=== PATIENT | male | born 1970 | race Caucasian/White ===

== ENCOUNTER → 2022-03-12 13:03 | Outpatient (BNVA) | payer BC, SELFPAY | PROVIDERS: Family Provider Family Medicine; PCP Family Medicine; Visit Provider Registered Nurse Neonatal Intensive Care | DX: R30.0 Dysuria (principal) | CPT/HCPCS: 81000 ==

== ENCOUNTER → 2022-03-22 13:40 | Outpatient (BNVA) | payer BC, SELFPAY | PROVIDERS: Family Provider Family Medicine; PCP Family Medicine; Visit Provider Registered Nurse Neonatal Intensive Care | DX: R30.0 Dysuria (principal) | CPT/HCPCS: 87086 ==

== ENCOUNTER → 2022-04-04 11:16 | Outpatient (BNVA) | payer BC, SELFPAY | PROVIDERS: Family Provider Family Medicine; PCP Family Medicine; Visit Provider Family Medicine | DX: R30.0 Dysuria (principal) | CPT/HCPCS: 81000; 87491; 87591 ==

== ENCOUNTER → 2023-04-03 11:13 | Outpatient (BNVA) | payer BC, SELFPAY | PROVIDERS: Family Provider Family Medicine; PCP Family Medicine; Visit Provider Family Medicine | DX: F32.A Depression, unspecified (principal); I49.3 Ventricular premature depolarization; M79.10 Myalgia, unspecified site; R53.1 Weakness; R30.0 Dysuria | CPT/HCPCS: 80053; 80061; 82306; 82550; 82607; 83735; 83880; 84443; 85025; 86140 ==

== ENCOUNTER 2024-02-16 12:52 | Outpatient (CLI) | payer BC, MEDICAID, SELFPAY ==
--- NOTE | 2024-02-16 | ECG_ITS ---
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 Interpretive Statements Lung unchanged pre/post procedure; Intraprocedure shortess of breath; Symptoms resoled by discharge PROCEDURE: At the baseline, the patient's blood pressure was 101/84 with a heart rate of 109. The baseline electrocardiogram showed normal sinus rhythm with normal ST-Ts. Poor R wave progression. The patient exercised for 3 minutes and 2 seconds on a standard George protocol. Patient attained a maximum heart rate of 145 beats per minute(86% of the maximum predicted heart rate) with a blood pressure at the peak exercise of 167/81 mm Hg. The EKG at the peak exercise revealed no significant changes. Patient did not have any chest pain or any significant cardiac arrhythmias with the exercise During the recovery phase, there were no new changes. Blood pressure at the end of the recovery phase was 152/91 mm Hg with a heart rate of 111 per minute. CONCLUSION: 1. Normal EKG response to treadmill exercise 2. No exercise-induced chest pain or cardiac arrhythmia 3. Impaired exercise tolerance, attained a maximum of 4.6 METs Electronically Signed On 02-20-2024 14:34:48 COMMERCIAL INSURANCE UNDERWRITER by Glo Kurtz M.D. [id number]
[2024-02-16 13:02] VITALS: BMI 50.1
[2024-02-16 13:53] VITALS: BP 146/72; PULSE 111
== END 2024-02-16 12:53 | disposition home or self-care (01) ==
PROVIDERS: PCP Electrodiagnostic Medicine; Visit Provider Electrodiagnostic Medicine
DX: R07.9 Chest pain, unspecified (principal); R06.02 Shortness of breath
CPT/HCPCS: 93017

== ENCOUNTER 2024-03-13 23:09 | Emergency (ER) | payer BC, MEDICAID, SELFPAY ==
[2024-03-13 23:16] VITALS: BP 136/84; PULSE 86; RESP 18; TEMP 36.6; O2SAT 94; BMI 48.4
[2024-03-13 23:36] VITALS: BP 131/74; O2SAT 91
[2024-03-13 23:45] VITALS: BP 129/84; PULSE 91; RESP 19; O2SAT 93
[2024-03-14] VITALS (12 sets, daily range): BP systolic 110–170; BP diastolic 81–99; PULSE 85–99; RESP 16–23; O2SAT 90–95
--- NOTE | 2024-03-14 00:09 | W.ED.OVERDOS ---
HPI - Overdose General: Chief Complaint: Overdose Stated Complaint: dry mouth, numbness in hand and feet, od Time Seen by Provider: 03/13/24 23:14 History of Present Illness: 53 old male patient with a history of depression. He has been out of his venlafaxine for a day. He was feeling depressed, and wanted to try one of his 's marijuana Gummies. He took a whole square he says. After doing this, he began to have paresthesias to the bilateral upper extremities, dry mouth, some carpopedal spasm, with mild lethargy. He is quite nauseated as well. He has not thrown up. Related Data Previous Rx's Medication Instructions Recorded cholecalciferol (vitamin D3) 125 125 mcg PO DAILY #30 caps 04/16/23 mcg (5,000 unit) capsule mecobalamin (vitamin B12) 1,000 1,000 mcg PO DAILY #30 tabs 04/16/23 mcg chewable tablet diltiazem HCl 360 mg 360 mg PO DAILY #30 caps 05/21/23 capsule,extended release 24 hr risperidone 0.5 mg tablet 0.5 mg PO .QHS #30 tabs 06/26/23 (Risperdal) meloxicam 7.5 mg tablet 7.5 mg PO DAILY #30 tabs 08/24/23 venlafaxine 150 mg See Rx Instructions .Route 03/14/24 capsule,extended release 24 hr .COMPLEX #30 caps Allergies Allergy/AdvReac Type Severity Reaction Status Date / Time acetaminophen AdvReac Intermediate Unknown Verified 02/16/24 13:02 [From Darvocet-N] propoxyphene AdvReac Intermediate Unknown Verified 02/16/24 13:02 [From Darvocet-N] Sulfa (Sulfonamide AdvReac Intermediate rash Verified 02/16/24 13:02 Antibiotics) aripiprazole [From Abilify] AdvReac ADR-Confusi Verified 02/16/24 13:02 on [facility] PFSH: Medical History Hypertension Vitamin D deficiency Symptomatic PVCs Depression Physical Exam Const: COMMON NORMALS: no acute distress GENERAL APPEARANCE: cooperative; not ill appearing and not frail appearing HENMT: COMMON NORMALS: normocephalic, atraumatic and Normal external nose present HEAD & SCALP: normocephalic and atraumatic FACE & SINUS: normal facial exam and face symmetric NOSE: Normal external nose present Eye: COMMON NORMALS: Equal, round and reactive pupils present and EOMs intact bilaterally PUPIL: Yes Equal, round and reactive pupils present Neck/C-Spine: GENERAL: Yes trachea midline Chest: CHEST: Yes Symmetrical chest wall rise Resp: COMMON NORMALS: normal respiratory effort, No retractions, No use of accessory muscles and clear to auscultation bilaterally AUSCULTATION: clear to auscultation bilaterally Cardio: COMMON NORMALS: regular rate and regular rhythm RATE: regular rate RHYTHM: regular rhythm GI: COMMON NORMALS: Normal to inspection, nondistended, normoactive bowel sounds present Extremity: COMMON NORMALS: no pedal edema Neuro: BHAVNA COMA SCALE: document GCS findings [place] coma scale eye opening: Spontaneous [place] coma scale verbal response: Orientated [place] coma scale motor response: Obey commands Bhavna coma scale total score: 15 SENSORY EXAM: Yes extremities (intact) Psych: COMMON NORMALS: speech normal SPEECH: Yes normal speech Skin: COMMON NORMALS: no rashes or lesions noted GENERAL SKIN EXAM: no rashes or lesions noted Course Vital Signs: Vital signs: Vital Signs Temperature 98 F 03/13/24 23:16 Pulse Rate 87 03/14/24 02:44 Respiratory Rate 18 03/14/24 02:44 Blood Pressure 125/84 03/14/24 02:44 Pulse Oximetry 94 03/14/24 02:44 Oxygen Delivery Me thod Room Air 03/14/24 02:30 MDM - Overdose Medical Decision Making The patient's heart rate is 90, saturations are 92 to 95% on room air. White blood cell count is 12. Other laboratory markers are not significantly abnormal. He feels improved after nausea medication here. Ingestion/overdose was accidental likely representing an adverse reaction to marijuana gummy as opposed to a true overdose. He feels improved currently, and is ready to go home. He is not suicidal or homicidal Lab Data 03/14/24 00:32 03/14/24 00:32 Laboratory Results WBC 12.34 10^3/uL (3.29-11.43) H 03/14/24 00:32 RBC 4.98 10^6/uL (3.85-5.65) 03/14/24 00:32 Hgb 14.70 g/dL (11.27-16.99) 03/14/24 00:32 Hct 46.8 % (37-53) 03/14/24 00:32 MCV 94.0 fl (82-101) 03/14/24 00:32 MCH 29.5 pg (27-33) 03/14/24 00:32 MCHC 31.4 g/dL (30-55) 03/14/24 00:32 RDW 13.9 % (12.1-15.1) 03/14/24 00:32 Plt Count 194 10^3/cmm (157-399) 03/14/24 00:32 MPV 12.8 fL (7.4-10.4) H 03/14/24 00:32 Neut % (Auto) 77.7 % 03/14/24 00:32 Lymph % (Auto) 14.1 % 03/14/24 00: [place] % (Auto) 6.4 % 03/14/24 00: Eos % (Auto) 0.8 % 03/14/24 00: Baso % (Auto) 0.5 % 03/14/24 00:32 Neut # (Auto) 9.59 10^3/uL (1.8-7.7) H 03/14/24 00:32 Lymph # (Auto) 1.7 10^3/uL (0.8-4.8) 03/14/24 00:32 [place] # (Auto) 0.8 10^3/uL (0.2-0.9) 03/14/24 00:32 Eos # (Auto) 0.1 10^3/uL (0.0-0.8) 03/14/24 00:32 Baso # (Auto) 0.1 10^3/uL (0.0-0.1) 03/14/24 00:32 Nucleated RBC % (auto) 0 % 03/14/24 00: Nucleated RBCs # 0.0 /100WBC 03/14/24 00:32 Sodium 136 mmol/L (136-145) 03/14/24 00:32 Potassium 3.7 mmol/L (3.5-5.1) 03/14/24 00:32 Chloride 98 mmol/L (98-107) 03/14/24 00:32 Carbon Dioxide 26 mmol/L (22-29) 03/14/24 00:32 Anion Gap 15.7 (5-19) 03/14/24 00:32 BUN 13 mg/dL (6-20) 03/14/24 00:32 Creatinine 1.2 mg/dL (0.7-1.2) 03/14/24 00:32 GFR Calculation 63.3 mL/min (90-130) L 03/14/24 00:32 Glucose 188 mg/dL (65-115) H 03/14/24 00:32 Calculated Osmolality 287 mOsm/kg (285-295) 03/14/24 00:32 Calcium 9.2 mg/dL (8.5-10.5) 03/14/24 00:32 Total Bilirubin 0.2 mg/dL (0.15-1.2) 03/14/24 00:32 AST 20 U/L (0-40) 03/14/24 00:32 ALT 35 U/L (0-41) 03/14/24 00:32 Alkaline Phosphatase 125 U/L (40-130) 03/14/24 00:32 Total Protein 7.7 g/dL (6.6-8.7) 03/14/24 00:32 Albumin 3.9 g/dL (3.5-5.2) 03/14/24 00:32 Globulin 3.8 g/dL (1.3-4.6) 03/14/24 00:32 Salicylates < 0.3 mg/dL (3-10) L 03/14/24 00:32 Acetaminophen < 5.0 ug/mL (10-30) L 03/14/24 00:32 Ethyl Alcohol < 10 mg/dL (0-10) 03/14/24 00:32 No radiology studies performed this visit Discharge Plan Discharge Patient Disposition: Home Clinical Impression: Accidental cannabis overdose Condition: Stable Prescriptions: Continued venlafaxine 150 mg capsule,extended release 24hr See Rx Instructions .ROUTE .COMPLEX Qty: 30 0RF Dose Instruction: Take 1 capsule by mouth once daily Rx Instructions: Take 1 capsule by mouth once daily No Action cholecalciferol (vitamin D3) 125 mcg (5,000 unit) capsule 125 mcg PO DAILY Qty: 30 11RF mecobalamin (vitamin B12) 1,000 mcg tablet,chewable 1,000 mcg PO DAILY Qty: 30 11RF diltiazem HCl 360 mg capsule,extended release 24hr 360 mg PO DAILY Qty: 30 11RF risperidone [Risperdal] 0.5 mg tablet 0.5 mg PO .QHS Qty: 30 11RF meloxicam 7.5 mg tablet 7.5 mg PO DAILY Qty: 30 11RF Discharge Orders: Discharge ED (Routine); Ordered 03/14/24 Ordered By: Robert Newman Referrals: Baldev Palafox DO [Primary Care Provider] - 1-3 days Patient Instructions: Cannabis Use Disorder (ED), Opioid Safety, Pain Management Activity Restrictions/Additional Instructions: Avoid ingestion of cannabis in the future. Stay hydrated for the next 48 hours. Return for any new or worsening symptoms. See your doctor this week. Coding Level of Care Code ED Pump Operator for Summer Suazo
--- NOTE | 2024-03-14 00:14 | ECG_ITS ---
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 Measurements Intervals [place] Rate: 96 P: 64 NE: 169 QRS: 132 QRSD: 96 T: 93 QT: 362 QTc: 458 Interpretive Statements SINUS RHYTHM RIGHT AXIS DEVIATION [QRS AXIS > 100] No previous ECG available for comparison Electronically Signed On 03-16-2024 23:52:16 BANQUET MANAGER by Glo Kurtz M.D. [email or web address]
[2024-03-14 01:06] LABS: Basophils # 0.1 10^3/uL (0.0-0.1); Basophils % 0.5 %; Eosinophils # 0.1 10^3/uL (0.0-0.8); Eosinophils % 0.8 %; Hematocrit 46.8 % (37-53); Lymphocytes # 1.7 10^3/uL (0.8-4.8); Lymphocytes % 14.1 %; Mean Corpuscular HGB Conc 31.4 g/dL (30-55); Mean Corpuscular Hemoglobin 29.5 pg (27-33); Mean Platelet Volume 12.8 fL (7.4-10.4); Monocytes # 0.8 10^3/uL (0.2-0.9); Monocytes % 6.4 %; Neutrophils # 9.59 10^3/uL (1.8-7.7); Neutrophils % 77.7 %; Nucleated Red Blood Cells % 0 %; Platelet Count 194 10^3/cmm (157-399); Red Blood Count 4.98 10^6/uL (3.85-5.65); Red Cell Distribution Width 13.9 % (12.1-15.1); White Blood Count 12.34 10^3/uL (3.29-11.43)
[2024-03-14] MEDS: ondansetron 4 MG Tablet PO (01:12)
[2024-03-14 01:20] LABS: Alanine Aminotransferase 35 U/L (0-41); Albumin Level 3.9 g/dL (3.5-5.2); Alkaline Phosphatase 125 U/L (40-130); Anion Gap 15.7 (5-19); Aspartate Amino Transferase 20 U/L (0-40); Blood Urea Nitrogen 13 mg/dL (6-20); Calcium 9.2 mg/dL (8.5-10.5); Carbon Dioxide 26 mmol/L (22-29); Chloride 98 mmol/L (98-107); Globulin 3.8 g/dL (1.3-4.6); Glomerular Filtration Rate 63.3 mL/min (90-130); Glucose 188 mg/dL (65-115); Osmolality Calculated 287 mOsm/kg (285-295); Potassium 3.7 mmol/L (3.5-5.1); Sodium 136 mmol/L (136-145); Total Bilirubin 0.2 mg/dL (0.15-1.2); Total Protein 7.7 g/dL (6.6-8.7)
[2024-03-14 01:29] LABS: Acetaminophen < 5.0 ug/mL (10-30); Alcohol Level < 10 mg/dL (0-10); Salicylate < 0.3 mg/dL (3-10)
== END 2024-03-14 02:44 | disposition home or self-care (01) ==
PROVIDERS: Emergency Provider Emergency Medicine; PCP Electrodiagnostic Medicine
DX: T40.711A Poisoning by cannabis, accidental (unintentional), initial encounter (principal); X58.XXXA Exposure to other specified factors, initial encounter; I10 Essential (primary) hypertension
CPT/HCPCS: 36415; 80053; 80307; 85025; 93005; 99284; Q0162